=== PATIENT | male | born 1965 | race Caucasian/White ===

== ENCOUNTER 2018-08-04 13:31 | Emergency (ER) | payer OTHER ==
[2018-08-04] MEDS ORDERED: Ketorolac 60 MG/2 ML SDV IM ONE (14:13)
--- NOTE | 2018-08-04 14:21 | EDM.PDOC ---
ED HPI GENERAL MEDICAL PROBLEM - General Chief Complaint: General Stated Complaint: SWOLLEN HANDS, LEGS AND FEET Time Seen by Provider: 08/04/18 13:56 Source of Information: Reports: Patient History Limitations: Reports: No Limitations - History of Present Illness INITIAL COMMENTS - FREE TEXT/NARRATIVE: HISTORY AND PHYSICAL: History of present illness: Patient is a 33-year-old male presents to the ED today with right elbow swelling , and bilateral feet swelling. Patient states this has been ongoing the past 2 days. Patient states he's had a history of his right arm swelling and was told he needed an MRI for this in the past (approx 3 years ago). He states he did not have this done. Patient states he notices he's been walking differently on his feet and making him swell which is causing him pain. He rates his pain a 6 out of 10. He denies any injury to his elbow or feet. Patient denies any fever, chills, headache, change in vision, syncope or near syncope. Denies any chest pain, shortness of breath or cough. Denies any abdominal pain, nausea, vomiting, diarrhea, constipation or dysuria. Has not noted any blood in urine or stool. Patient has been eating and drinking appropriately. Patient denies any other health history. Review of systems: As per history of present illness and below otherwise all systems reviewed and negative. Past medical history: As per history of present illness and as reviewed below otherwise noncontributory. Surgical history: As per history of present illness and as reviewed below otherwise noncontributory. Social history: See social history for further information Family history: As per history of present illness and as reviewed below otherwise noncontributory. Physical exam: General: Patient is alert, oriented, and in no acute distress. He is sitting comfortably on the exam table. HEENT: Atraumatic, normocephalic, pupils equal and reactive bilaterally, negative for conjunctival pallor or scleral icterus, mucous membranes moist, TMs normal bilaterally, throat clear, neck supple, nontender, trachea midline. No drooling or trismus noted. No meningeal signs. No hot potato voice noted. Lungs: Clear to auscultation, breath sounds equal bilaterally, chest nontender. Heart: S1S2, regular rate and rhythm without overt murmur Abdomen: Soft, nondistended, nontender. Negative for masses or hepatosplenomegaly. Negative for costovertebral tenderness. Pelvis: Stable nontender. Genitourinary: Deferred. Rectal: Deferred. Skin: Intact, warm, dry. No lesions or rashes noted. Extremities: Patient does have swelling of the bursa of the right elbow. Nonpainful to palpation of the elbow. Patient has full range of motion of the elbow without pain. Patient has 1+ nonpitting edema of the feet bilaterally. There are no obvious deformities. Dorsalis pedis and posterior tibial pulses are grossly intact. Capillary refill less than 2 seconds. Otherwise, atraumatic , negative for cords or calf pain. Neurovascular unremarkable. Neuro: Awake, alert, oriented. Cranial nerves II through XII unremarkable. Cerebellum unremarkable. Motor and sensory unremarkable throughout. Exam nonfocal. Notes: On exam, patient does appear to have a bursitis of the right elbow. 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 Imaging and lab work today. Imaging shows no acute osseous abnormality. Patient does have an elevation in his leukocytes. However, he remains afebrile and does not complain of any other symptoms. Peripheral blood smear was performed today. Will not get the results for a few days. Dr flores was involved in this case and agreeable to plan of care. Peripheral smear result is pending. Discussed the importance of follow up with primary care provider for repeat/further evaluation. Supportive care measures were reviewed and discussed. Voices understanding and is agreeable to plan of care. Denies any further questions or concerns at this time. Diagnostics: CBC, CMP, BNP, x-ray feet bilaterally, x-ray right elbow, peripheral blood smear Therapeutics: Toradol Prescription: None Impression: 1. Bursitis, right elbow 2. Bilateral foot edema, unspecified 3. Leukocytosis, unspecified Plan: 1. You can alternate ibuprofen and Tylenol as directed for pain and discomfort. Use compression stockings to keep down the swelling in the feet. Decrease salt intake and elevate feet when you can to minimize swelling. 2. Follow-up with her primary care provider as discussed for follow up/further evaluation of lab work. 3. Return to the ED as needed and as discussed. Definitive disposition and diagnosis as appropriate pending reevaluation and review of above. Generalized Pain Score (Numeric/FACES): 7 - Related Data Allergies Allergy/AdvReac Type Severity Reaction Status Date / Time No Known Allergies Allergy Verified 08/04/18 13:59 Home Meds: Home Meds Citalopram Hydrobromide [Celexa] 60 mg PO DAILY 08/04/18 [History] Lisinopril 1 tab PO DAILY 08/04/18 [History] Lisinopril/Hydrochlorothiazide [Lisinopril-HCTZ 10-12.5 MG] 40 mg PO DAILY 08/04 [History] Past Medical History Cardiovascular History: Reports: Hypertension Psychiatric History: Reports: Depression - Past Surgical History HEENT Surgical History: Reports: Oral Surgery Social & Family History - Tobacco Use Smoking Status *Q: Never Smoker - Caffeine Use Caffeine Use: Reports: Energy Drinks - Recreational Drug Use Recreational Drug Use: No ED ROS GENERAL - Review of Systems Review Of Systems: ROS reveals no pertinent complaints other than HPI. ED EXAM, GENERAL - Physical Exam Exam: See Below (see dictation) Course - Vital Signs Last Recorded V/S: Last Vital Signs Temp 97.3 F 08/04/18 13:56 Pulse 100 08/04/18 13:56 Resp 18 08/04/18 13:56 BP 171/96 H 08/04/18 13:56 Pulse Ox 96 08/04/18 13:56 - Orders/Labs/Meds Orders: Active Orders 24 hr Category Date Time Status ESR [SEDIMENTATION RATE AUTO] [HEME] Stat Lab 08/04/18 14:20 Received PERIPH BLOOD SMEAR PATHOLOGIST [HEME] Stat Lab 08/04/18 15:04 Ordered Labs: Laboratory Tests 08/04/18 08/04/18 08/04/18 Range/Units 14:20 14:20 14:20 WBC 18.93 H (4.0-11.0) K/uL RBC 3.87 L (4.50-5.90) M/uL Hgb 12.5 L (13.0-17.0) g/dL Hct 37.6 L (38.0-50.0) % MCV 97.2 (80.0-98.0) fL MCH 32.3 H (27.0-32.0) pg MCHC 33.2 (31.0-37.0) g/dL RDW Std Deviation 43.5 (28.0-62.0) fl RDW Coeff of Vijay 12 (11.0-15.0) % Plt Count 558 H (150-400) K/uL MPV 10.10 (7.40-12.00) fL Neut % (Auto) 79.5 (48.0-80.0) % Lymph % (Auto) 8.6 L (16.0-40.0) % Marshall % (Auto) 10.9 (0.0-15.0) % Eos % (Auto) 0.8 (0.0-7.0) % Baso % (Auto) 0.2 (0.0-1.5) % Neut # (Auto) 15.1 H (1.4-5.7) K/uL Lymph # (Auto) 1.6 (0.6-2.4) K/uL Marshall # (Auto) 2.1 H (0.0-0.8) K/uL Eos # (Auto) 0.2 (0.0-0.7) K/uL Baso # (Auto) 0.0 (0.0-0.1) K/uL Nucleated RBC % 0.0 /100WBC Nucleated RBCs # 0 K/uL Sodium 137 (136-148) mmol/L Potassium 3.6 (3.5-5.1) mmol/L Chloride 98 (98-107) mmol/L Carbon Dioxide 24.4 (21.0-32.0) mmol/L BUN 18 (7.0-18.0) mg/dL Creatinine 1.3 (0.8-1.3) mg/dL Est Cr Clr Drug Dosing 66.47 mL/min Estimated GFR (MDRD) 58.0 ml/min Glucose 116 H (74-106) mg/dL Calcium 9.5 (8.5-10.1) mg/dL Total Bilirubin 0.4 (0.2-1.0) mg/dL AST 25 (15-37) IU/L ALT 38 (14-63) IU/L Alkaline Phosphatase 96 (46-116) U/L B-Natriuretic Peptide 14 (<100) PG/ML Total Protein 8.4 H (6.4-8.2) g/dL Albumin 3.1 L (3.4-5.0) g/dL Globulin 5.3 H (2.6-4.0) g/dL Albumin/Globulin Ratio 0.6 L (0.9-1.6) Meds: Medications Discontinued Medications Generic Name Dose Route Start Last Admin Trade Name Krzysztof PRN Reason Stop Dose Admin Ketorolac Tromethamine 60 mg 08/04/18 14:13 08/04/18 14:20 Toradol IM 08/04/18 14:14 60 mg ONETIME ONE Administration Departure - Departure Time of Disposition: 15:10 Disposition: Home, Self-Care 01 Clinical Impression: Edema of foot Bursitis Qualifiers: Bursitis location: elbow Elbow bursitis location: olecranon bursitis Laterality : right Qualified Code(s): M70.21 - Olecranon bursitis, right elbow Leukocytosis Qualifiers: Leukocytosis type: unspecified Qualified Code(s): D72.829 - Elevated white blood cell count, unspecified - Discharge Information Instructions: Edema, [id number] Referrals: PCP,Unknown [Primary Care Provider] - Forms: ED Department Discharge Additional Instructions: The following information is given to patients seen in the emergency department who are being discharged to home. This information is to outline your options for follow-up care. We provide all patients seen in our emergency department with a follow-up referral. The need for follow-up, as well as the timing and circumstances, are variable depending upon the specifics of your emergency department visit. If you don't have a primary care physician on staff, we will provide you with a referral. We always advise you to contact your personal physician following an emergency department visit to inform them of the circumstance of the visit and for follow-up with them and/or the need for any referrals to a consulting specialist. The emergency department will also refer you to a specialist when appropriate. This referral assures that you have the opportunity for follow-up care with a specialist. All of these measure are taken in an effort to provide you with optimal care, which includes your follow-up. Under all circumstances we always encourage you to contact your private physician who remains a resource for coordinating your care. When calling for follow-up care, please make the office aware that this follow-up is from your recent emergency room visit. If for any reason you are refused follow-up, please contact the [facility] Emergency Department at and asked to speak to the emergency department charge nurse. [facility] [address] [place], [place] [id number], [place] [address] [facility] [address] [place] [address] 1. You can alternate ibuprofen and Tylenol as directed for pain and discomfort. Use compression stockings to keep down the swelling in the feet. Decrease salt intake and elevate feet when you can to minimize swelling. 2. Follow-up with her primary care provider as discussed for follow up/further evaluation of lab work. 3. Return to the ED as needed and as discussed. - My Orders Last 24 Hours: My Active Orders 08/04/18 14:20 ESR [SEDIMENTATION RATE AUTO] [HEME] Stat 08/04/18 15:04 PERIPH BLOOD SMEAR PATHOLOGIST [HEME] Stat - Assessment/Plan Last 24 Hours: My Active Orders 08/04/18 14:20 ESR [SEDIMENTATION RATE AUTO] [HEME] Stat 08/04/18 15:04 PERIPH BLOOD SMEAR PATHOLOGIST [HEME] Stat
--- NOTE | 2018-08-04 15:00 | CR ---
EXAMINATION: Left and right foot HISTORY: Swelling COMPARISON: None TECHNIQUE: 2 views of the left foot and 2 views of the right foot FINDINGS: There is no acute osseous abnormality, dislocation, or fracture. Bone mineralization and joint spaces are preserved. Mild osteoarthritic changes noted within the midfoot. Small left Achilles calcaneal and these of fight. Mild generalized soft tissue swelling is noted bilaterally. IMPRESSION: Soft tissue swelling and mild degenerative changes without acute findings.
--- NOTE | 2018-08-04 15:00 | CR ---
EXAMINATION: Right elbow HISTORY: Swelling COMPARISON: None TECHNIQUE: 2 views FINDINGS/IMPRESSION: There is no acute osseous abnormality, dislocation, or fracture. Bone mineralization and joint spaces are preserved. No joint effusion. Moderate soft tissue swelling is noted overlying the olecranon with a moderate triceps insertional enthesophyte.
== END 2018-08-04 15:42 | disposition home or self-care (01) ==
LOC: MW.ED 13:31
DX: M70.21 Olecranon bursitis, right elbow (principal); R60.0 Localized edema; D72.829 Elevated white blood cell count, unspecified; I10 Essential (primary) hypertension; F32.9 Major depressive disorder, single episode, unspecified; Z79.899 Other long term (current) drug therapy
CPT/HCPCS: 36415; 73070; 73620; 80053; 83880; 85025; 85652; 88104; 96372; 99283; J1885